=== PATIENT | male | born 2000 | race Caucasian/White ===

== ENCOUNTER → 2021-08-20 09:21 | Outpatient (BNVA) | payer MEDICAID, SELFPAY | PROVIDERS: Visit Provider Registered Nurse | DX: Z79.899 Other long term (current) drug therapy (principal) | CPT/HCPCS: 36415; 80061; 83036 ==

== ENCOUNTER 2021-09-27 20:00 | Outpatient (CLI) | payer MEDICAID, SELFPAY | END 2021-09-27 20:01 | disposition home or self-care (01) | LOC: SLEEP 10-01 08:11 | PROVIDERS: Visit Provider Registered Nurse | DX: G47.10 Hypersomnia, unspecified (principal); R06.83 Snoring; R53.83 Other fatigue | CPT/HCPCS: 95810 ==

== ENCOUNTER → 2023-01-07 13:19 | Outpatient (BNVA) | payer MEDICAID, SELFPAY | PROVIDERS: Visit Provider Registered Nurse | DX: F32.A Depression, unspecified (principal); Z79.899 Other long term (current) drug therapy | CPT/HCPCS: 80053; 80061; 82306; 82607; 83036; 84443; 85025 ==

== ENCOUNTER → 2023-12-01 14:38 | Outpatient (BNVA) | payer BC, MEDICAID, SELFPAY | PROVIDERS: PCP Nurse Practitioner Primary Care; Visit Provider Psychiatry & Neurology Psychiatry | DX: Z79.899 Other long term (current) drug therapy (principal) | CPT/HCPCS: 80053; 80061; 83036; 84443; 85025 ==

== ENCOUNTER → 2025-02-10 12:11 | Outpatient (BNVA) | payer BC, SELFPAY | PROVIDERS: PCP Nurse Practitioner Primary Care | DX: F33.41 Major depressive disorder, recurrent, in partial remission (principal); F91.9 Conduct disorder, unspecified; F90.2 Attention-deficit hyperactivity disorder, combined type; F84.0 Autistic disorder; Z79.899 Other long term (current) drug therapy | CPT/HCPCS: 80053; 80061; 83036; 84443; 85025 ==